=== PATIENT | male | born 2000 | race Caucasian/White ===

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

== ENCOUNTER 2023-08-21 18:01 | Observation (INO) ==
--- NOTE | 2023-08-21 18:34 | ED Triage Note ---
Date of Service August 21, 2023 Provider in Triage Author: Deirdre Kimbrough History of Present Illness This patient was briefly evaluated while in triage. An abbreviated physical exam was performed. This patient is a 23-year-old Male who presents to the ED for evaluation of nausea, vomiting, abdominal pain x3 days. Last emesis was last night. Persistent abdominal pain reports "feels like there's a ball of pain in the center of my stomach." Pain right above belly button. Physical Exam VITALS: Vitals are noted on the nurse's note and reviewed by myself. GENERAL: This is a 23 year old male, in no acute distress, nondiaphoretic, well- developed well-nourished. SKIN: No obvious rashes, edema, erythema HEAD: Normocephalic atraumatic. EYES: Conjunctivae without injection, sclerae without icterus. NECK: No JVD. LUNGS: No retractions or accessory muscle use. MUSCULOSKELETAL: Normal gait. NEURO: Patient was alert and oriented to person place and time. No focal neurological deficits. Initial orders for labs and / or imaging were placed and patient was placed in the waiting area until a bed is available. Please see further documentation for the full ED course.
[2023-08-21] MEDS: ALUMINUM/MAGNESIUM SUSP 30 ML UDC PO STA (19:06)
[2023-08-21] MEDS: ONDANSETRON INJ 2 MG/ML 2 ML VIAL IV STA (19:06)
[2023-08-21] MEDS: KETOROLAC TROMETHAMINE 15 MG/ML VIAL IV STA (19:06)
[2023-08-21] MEDS: SODIUM CHLORIDE 0.9% 1,000 ML IV STA (19:06)
[2023-08-21] MEDS: FAMOTIDINE 20MG IV PUSH 20 MG/5 ML SYR IV STA (19:06)
[2023-08-21 19:37] LABS: Albumin Globulin Ratio 1.8 (0.9-2); Albumin Level 5.6 gm/dl (3.4-5.0); BUN Creatinine Ratio 21.8 (10-20); Bilirubin,Total 1.7 mg/dl (0.2-1.0); Calcium 10.5 mg/dl (8.6-10.3); Creatinine Clr Calc Pharmacy 110.7 ml/min; Est GFR (Non-African American) 120.8 ml/min; Globulin 3.1 gm/dl (2.5-4.0); Potassium 3.4 mmol/L (3.5-5.1); Total Protein 8.7 gm/dl (6.0-8.3)
[2023-08-21 19:44] LABS: Basophils # (auto) 0.01 K/uL (0.00-0.20); Basophils % (auto) 0.1 %; Hematocrit (blood only) 46.8 % (42.0-52.0); Hemoglobin 16.8 g/dl (14.0-18.0); Immature Granulocytes # (auto) 0.04 K/uL (0.01-0.20); Immature Granulocytes % (auto) 0.3 %; Lymphocytes # (auto) 1.81 K/uL (1.20-3.40); Lymphocytes % (auto) 14.8 %; Mean Corpuscular Hemoglobin 30.1 pg (25.0-34.0); Mean Corpuscular Hgb Conc 35.9 g/dL (32.0-36.0); Mean Corpuscular Volume 83.7 fL (80.0-100.0); Mean Platelet Volume 9.2 fL (9.4-12.4); Monocytes % (auto) 9.8 %; Neutrophils # (auto) 9.17 K/uL (1.40-6.50); Platelet Count 397 K/uL (130-400); RDW Standard Deviation 36.4 fL (36.4-46.3); Red Blood Count 5.59 M/uL (4.70-6.10); White Blood Count 12.23 K/ul (4.8-10.8)
--- NOTE | 2023-08-21 21:44 | Emergency Department Note ---
History of Present Illness General Chief complaint: Abdominal Pain Stated complaint: ABD PAIN, NAUSEA, VOMITED THIS MORNING Time Seen by Provider: 08/21/23 21:31 History of Present Illness Maximum Pain Intensity: 3 This is a 23-year-old male presenting to the emergency department for evaluation of upper abdominal pain that began 3 days ago. The patient states this was with associated nausea and vomiting. He has not had fevers or chills. He is not able to eat or drink due to his symptoms. Patient rates his discomfort a 3/10. He does not have any lower symptoms. No recent travel history. No history of abdominal surgery. Home Medications Medication Instructions Recorded Confirmed Type No Known Home Medications 08/21/23 08/21/23 History Allergies Allergy/AdvReac Type Severity Reaction Status Date / Time No Known Allergies Allergy Verified 08/21/23 22:09 Past Med/Surg History Medical History No chronic diseases present Surgical History No significant past surgical history Social History Smoking Status: Never smoker Tobacco Type: Cigarettes Do You Dip or Chew Tobacco: No; Hx Alcohol Use: Yes Alcohol type: beer and hard liquor Hx Substance Use: Yes Last Used Substance: Days (ago) Substance Use Type Other:: medical card Preferred Language: Guatemalan Communication Ability: Effective Volunteer Recruiter Required: No Beliefs That Will Affect Care: None Current Living Situation: Parent Feels Safe at Home: Yes Safety Concerns: Feels Safe At This Time Assistive Devices: Contacts and Glasses Review of Systems A total of 10 systems reviewed and were otherwise negative Physical Exam Vital Signs Vital Signs - 24 hr 08/21/23 18:33 08/21/23 21:26 08/21/23 21:30 Temperature 36.7 C Temperature Source Temporal Artery Scan Pulse Rate 57 L 57 L Pulse Rate [Apical] 67 Respiratory Rate 20 12 Respiratory Effort / Characteristics Non-Labored Spontaneous Respiratory Depth Normal Blood Pressure 125/81 Blood Pressure [Left Arm] 147/92 H Blood Pressure Mean 95 Blood Pressure Mean [Left Arm] 110 Pulse Oximetry 98 98 Oxygen Delivery Method Room Air Sepsis Recent Fever Within 48 Hours No Sepsis New/Unexplained Change in Mental Status N/A Sepsis Action Taken by Nursing No Action Required 08/21/23 21:50 08/21/23 23:56 08/21/23 23:57 Temperature Temperature Source Pulse Rate 62 60 Pulse Rate [Apical] Respiratory Rate 18 16 Respiratory Effort / Characteristics Respiratory Depth Blood Pressure 147/92 H 132/81 Blood Pressure [Left Arm] Blood Pressure Mean 110 103 Blood Pressure Mean [Left Arm] Pulse Oximetry 98 97 98 Oxygen Delivery Method Room Air Sepsis Recent Fever Within 48 Hours Sepsis New/Unexplained Change in Mental Status Sepsis Action Taken by Nursing VITALS: Vitals are noted on the nurse's note and reviewed by myself. Vital signs stable. GENERAL: Well-developed, well-nourished, white male, who is in no acute distress and resting comfortably. Patient is cooperative with the examination. HEAD: Normocephalic atraumatic. EARS: External ear normal. External auditory canals clear, tympanic membranes pearly mcadams without erythema or effusion bilaterally. EYES: Pupils equal round and reactive to light and accommodation. Conjunctivae without injection, sclerae without icterus. Extraocular movements intact. NOSE: Patent, turbinates without inflammation or discharge. MOUTH: Mucous membranes moist. Tonsils are not enlarged. Pharynx without erythema, blood, or exudate. Uvula midline. Airway patent. NECK: Supple without nuchal rigidity. No lymphadenopathy. No thyromegaly. Cervical spine is nontender. HEART: Regular rate and rhythm without murmurs gallops or rubs. LUNGS: Clear to auscultation bilaterally without wheezes, rales or rhonchi. No retractions or accessory muscle use. ABDOMEN: Positive normal bowel sounds x 4. Soft, with epigastric tenderness on palpation. No rebound or guarding. No lower tenderness. No CVA tenderness. Course Administered Medications Acetaminophen (Acetaminophen 325 Mg Tab) 650 mg PO QID PRN PRN Reason: pain/fever Stop: 09/21/23 00:04 Last Admin: 08/22/23 08:01 Dose: 650 mg Documented By: CEF Enoxaparin Sodium (Enoxaparin Inj 30 Mg/0.3 Ml Syr) 30 mg SQ QAM [facility] Stop: 09/21/23 08:59 Last Admin: 08/22/23 08:25 Dose: 30 mg Documented By: CEF Promethazine HCl 6.25 mg/ (Sodium Chloride) 50.25 mls @ 201 mls/hr IV Q6H PRN PRN Reason: Nausea And Vomiting Stop: 09/21/23 00:36 Last Infusion: 08/22/23 08:23 Dose: Infused Documented By: Admin: 08/22/23 08:00 Dose: 201 mls/hr Documented By: CEF Lactated Ringer's (Lr) 1,000 mls @ 80 mls/hr IV .[id number] KEVIN Stop: 08/23/23 12:59 Last Admin: 08/22/23 12:12 Dose: 80 mls/hr Documented By: CEF Discontinued Medications Al Hydrox/Mg Hydrox/Simethicone (Aluminum/Magnesium Susp 30 Ml Udc) 30 ml PO NOW STA Stop: 08/21/23 18:35 Last Admin: 08/21/23 19:06 Dose: 30 ml Documented By: PIERRE Sodium Chloride (Nss) 1,000 mls @ 999 mls/hr IV .Q1H1M STA Stop: 08/21/23 19:34 Last Infusion: 08/21/23 21:27 Dose: Infused Documented By: Admin: 08/21/23 19:06 Dose: 999 mls/hr Documented By: PIERRE Famotidine (Pepcid 20mg Iv Push) 20 mg in 5 mls @ 2.5 mls/min IV NOW STA Stop: 08/21/23 18:35 Last Admin: 08/21/23 19:06 Dose: 2.5 mls/min Documented By: PIERRE Sodium Chloride (Nss) 1,000 mls @ 999 mls/hr IV .Q1H1M KEVIN Stop: 08/21/23 22:45 Last Infusion: 08/21/23 23:49 Dose: Infused Documented By: Admin: 08/21/23 22:13 Dose: 999 mls/hr Documented By: MARCELO Potassium Chloride 20 meq/ (Lactated Ringer's) 1,010 mls @ 80 mls/hr IV .[id number] ONE Stop: 08/22/23 13:07 Last Infusion: 08/22/23 11:09 Dose: Infused Documented By: Admin: 08/22/23 00:47 Dose: 100 mls/hr Documented By: LAF Ioversol (Optiray 320 100ml) 89 ml IV ONCE ONE Stop: 08/21/23 21:56 Last Admin: 08/21/23 21:55 Dose: 89 ml Documented By: HANSA Ioversol (Optiray 320 100ml) 94 ml IV ONCE ONE Stop: 08/22/23 09:53 Last Admin: 08/22/23 09:52 Dose: 94 ml Documented By: GERMAIN Ketorolac Tromethamine (Ketorolac Tromethamine 15 Mg/Ml Vial) 10 mg IV NOW STA Stop: 08/21/23 18:35 Last Admin: 08/21/23 19:06 Dose: 10 mg Documented By: PIERRE Ondansetron HCl (Ondansetron Inj 2 Mg/Ml 2 Ml Vial) 4 mg IV NOW STA Stop: 08/21/23 18:35 Last Admin: 08/21/23 19:06 Dose: 4 mg Documented By: PIERRE Potassium Chloride (Potassium Chloride Crtab 20 Meq Tabcr) 20 meq PO NOW STA Stop: 08/22/23 00:03 Last Admin: 08/22/23 00:55 Dose: 20 meq Documented By: VICENTE Medical Decision Making Differential Diagnosis Differential diagnosis: Etiologies such as biliary colic, cholecystitis, hepatitis, pancreatitis, cardiac disease, pancreatitis, gastritis, peptic ulcer disease, appendicitis, cystitis, diverticulitis, mesenteric ischemia, inflammatory bowel disease, ileus, bowel obstruction, testicular/adnexal torsion, aortic pathology, shingles, as well as others were considered Laboratory Data 08/22/23 06:43 08/22/23 06:43 Lab Results 08/21/23 08/21/23 Range/Units 19:05 23:56 WBC 12.23 H (4.8-10.8) K/ul RBC 5.59 (4.70-6.10) M/uL Hgb 16.8 (14.0-18.0) g/dl Hct 46.8 (42.0-52.0) % MCV 83.7 (80.0-100.0) fL MCH 30.1 (25.0-34.0) pg MCHC 35.9 (32.0-36.0) g/dL RDW Std Deviation 36.4 (36.4-46.3) fL RDW Coeff of Vipul 12.0 (11.5-14.5) % Plt Count 397 (130-400) K/uL MPV 9.2 L (9.4-12.4) fL Immature Gran % (Auto) 0.3 % Neut % (Auto) 75.0 % Lymph % (Auto) 14.8 % [place] % (Auto) 9.8 % Eos % (Auto) 0.0 % Baso % (Auto) 0.1 % Neut # (Auto) 9.17 H (1.40-6.50) K/uL Lymph # (Auto) 1.81 (1.20-3.40) K/uL [place] # (Auto) 1.20 H (0.11-0.59) K/uL Eos # (Auto) 0.00 (0.00-0.50) K/uL Baso # (Auto) 0.01 (0.00-0.20) K/uL Immature Gran # (Auto) 0.04 (0.01-0.20) K/uL Sodium 137 (136-145) mmol/L Potassium 3.4 L (3.5-5.1) mmol/L Chloride 96 L (98-107) mmol/L Carbon Dioxide 31 (21-32) mmol/L Anion Gap 10 (3-11) BUN 19 (6-23) mg/dl Creatinine 0.87 (0.6-1.4) mg/dl Est Cr Clr Drug Dosing 110.7 ml/min Est GFR ( Amer) 140.0 ml/min Est GFR (Non-Af Amer) 120.8 ml/min BUN/Creatinine Ratio 21.8 H (10-20) Glucose 103 H (70-99(Fasting)) mg/dl Calcium 10.5 H (8.6-10.3) mg/dl Phosphorus 3.3 (2.5-4.9) mg/dl Magnesium 2.1 (1.7-2.4) mg/dl Total Bilirubin 1.7 H (0.2-1.0) mg/dl AST 17 (13-39) U/L ALT 16 (7-52) U/L Alkaline Phosphatase 39 (34-104) U/L Total Protein 8.7 H (6.0-8.3) gm/dl Albumin 5.6 H (3.4-5.0) gm/dl Globulin 3.1 (2.5-4.0) gm/dl Albumin/Globulin Ratio 1.8 (0.9-2) Amylase 154 H (25-115) U/L Lipase 363 H (11-82) U/L Urine Color Yellow Urine Appearance Clear (Clear) Urine pH 7.5 (4.5-7.5) Ur Specific [place] > 1.045 H (1.000-1.030) Urine Protein Trace H (Negative) Urine Glucose (UA) Negative (Negative) Urine Ketones 1+ H (Negative) Urine Blood Negative (Negative) Urine Nitrite Negative (Negative) Urine Bilirubin Negative (Negative) Urine Urobilinogen Negative (Negative) Ur Leukocyte Esterase Negative (Negative) Urine WBC (Auto) 0-5 (0-5) /hpf Urine RBC (Auto) 0-2 (0-2) /hpf U Hyaline Cast (Auto) 0-2 (0-2) /lpf U Epithel Cells (Auto) 0-2 (0-2) /hpf Urine Bacteria (Auto) None Seen (None Seen) Urine Opiates Screen Neg (Neg) Ur Methadone, Qual Neg (Neg) Urine Barbiturates Neg (Neg) Ur Phencyclidine (PCP) Neg (Neg) U Amphetamin/Meth Scrn Neg (Neg) MDMA (Ecstasy) Screen Neg (Neg) U Benzodiazepines Scrn Neg (Neg) Ur Cocaine Metabolite Neg (Neg) U Marijuana (THC) Screen Pos H (Neg) Imaging Data Radiologist's Impression: Gallbladder Ultrasound 08/22/23 00:35 Exam(s): US GALLBLADDER EXAM: US Abdomen Limited, Gallbladder CLINICAL HISTORY: Abdominal Pain. TECHNIQUE: Real-time ultrasound of the right upper quadrant with image documentation. COMPARISON: Gallbladder ultrasound 08/15/2022 FINDINGS: Liver: Indeterminate echogenic lesions in the left lower the liver measure up to 2.7 cm. Fatty infiltration of the liver. Gallbladder: Unremarkable. No gallstones. Common bile duct: Common bile duct is normal measuring 0.3 cm. No stones. No dilation. Pancreas: The pancreatic head and body are within normal limits. The tail is not visualized due to overlying bowel gas. Right kidney: The right kidney is unremarkable measuring 9.6 cm. IMPRESSION: 1. Indeterminate echogenic lesions in the left lower the liver measure up to 2.7 cm. Recommend further evaluation with dedicated hepatic protocol CT or MRI. 2. Fatty infiltration of the liver. Electronically signed by: Kaya Harvey MD 08/22/23 03:12 AM [facility] Narrative Physical exam and history were performed. Nursing notes, EMR, and Medication List were personally reviewed. No social concerns were identified as barriers to patients care. Patient appears to have upper abdominal pain bringing him to the ER. Patient was seen during a period of very high ER volume and acuity with extended wait times. Nursing protocol order have been performed and some of these are available for my review at the time of patient encounter. Patient's blood work is as above and was reviewed. He does not have a significantly elevated white blood cell count, gross anemia, bandemia, or significant electrolyte imbalance. Amylase and lipase are elevated which may suggest acute pancreatitis. Transaminases are not diagnostic. Because of the elevated enzymes the patient was sent to CT for imaging of his abdomen and pelvis. CT scan was reviewed by myself and radiology showing no acute process. Overall the patient does not appear well for discharge. Escalation of care is necessary. The patient was discussed with the on-call hospitalist team, who did agree to evaluate the patient here in the ER. Please see the hospitalist dictation for further patient course, plan, and disposition. The chart was completed utilizing [employer] Speech Voice Recognition Software. Grammatical errors, random word insertions, pronoun errors, and incomplete sentences are an occasional consequence of this system due to software limitations, ambient noise, and hardware issues. Any formal questions or concerns about the content, text, or information contained within the body of this dictation should be directly addressed to the provider for clarification. . Impression & Plan Acute pancreatitis, Acute upper abdominal pain Discharge Plan Visit Data Chief Complaint: Abdominal Pain Stated Complaint: ABD PAIN, NAUSEA, VOMITED THIS MORNING ED Provider: Nitesh Christy ED Midlevel Provider: Fabien Gomez Discharge Problem: Acute pancreatitis, Acute upper abdominal pain Patient Disposition: Admitted As Inpatient Discharge Instructions Interventions: ED Discharge Assessment Last Done: 08/22/23 01:09
[2023-08-21] MEDS: OPTIRAY 320 100ml IV ONE (21:55)
[2023-08-21] MEDS: SODIUM CHLORIDE 0.9% 1,000 ML IV SCH (22:13)
--- NOTE | 2023-08-21 22:29 | CT Scan Report ---
Exam(s): CT ABDOMEN + PELVIS With Contrast IV Amt: 89 CC OPTI 320 EXAM: CT Abdomen and Pelvis With Intravenous Contrast CLINICAL HISTORY: Reason for exam: upper abd pain, elevated lipase. TECHNIQUE: Axial computed tomography images of the abdomen and pelvis with intravenous contrast. CTDI is 9.91 mGy and DLP is 478.41 mGy-cm. Automated exposure control was utilized for the study. A dose lowering technique was utilized adhering to the principles of ALARA. CONTRAST: Patient received 89 CC OPTI 320 of IV contrast COMPARISON: No relevant prior studies available. FINDINGS: Lung bases: Unremarkable. No mass. No consolidation. ABDOMEN: Liver: Unremarkable. No mass. Gallbladder and bile ducts: Unremarkable. No calcified stones. No ductal dilation. Pancreas: Unremarkable. No mass. No ductal dilation. Spleen: Unremarkable. No splenomegaly. Adrenals: Unremarkable. No mass. Kidneys and ureters: Unremarkable. No solid mass. No hydronephrosis. Stomach and bowel: There is sigmoid colonic diverticulosis. No obstruction. No mucosal thickening. PELVIS: Appendix: No findings to suggest acute appendicitis. Bladder: Unremarkable. No mass. Reproductive: Unremarkable as visualized. ABDOMEN and PELVIS: Intraperitoneal space: Unremarkable. No free air. No significant fluid collection. Bones/joints: No acute fracture. No dislocation. Soft tissues: Unremarkable. Vasculature: Unremarkable. No abdominal aortic aneurysm. Lymph nodes: Unremarkable. No enlarged lymph nodes. IMPRESSION: No evidence of pancreatitis Is Electronically signed by: Tushar Rodriguez MD 08/21/23 22:28 PM
[2023-08-22] MEDS ORDERED: oxyCODONE HCL IR 5 MG TAB (IMMEDIATE RELEASE) PO PRN (00:05)
[2023-08-22 00:07] LABS: Appearance Urine Clear (Clear); Bacteria Urine Automated None Seen (None Seen); Bilirubin Urine Negative (Negative); Blood Urine Negative (Negative); Cast Urine Automated 0-2 /lpf (0-2); Color Urine Yellow; Epithelial Cell Urine Auto 0-2 /hpf (0-2); Glucose Urine UA Negative (Negative); Ketones Urine 1+ (Negative); Leukocyte Esterase Urine Negative (Negative); Nitrite Urine Negative (Negative); Protein Urine Trace (Negative); RBC Urine Automated 0-2 /hpf (0-2); Specific Gravity Urine > 1.045 (1.000-1.030); Urobilinogen Urine Negative (Negative); WBC Urine Automated 0-5 /hpf (0-5); pH Urine 7.5 (4.5-7.5)
--- NOTE | 2023-08-22 00:35 | History & Physical Report ---
Date of Service August 22, 2023 Assessment & Plan (1) Acute pancreatitis: Plan: Possibly from cannabis use Rule out biliary etiology Hypercalcemia secondary to clinical dehydration secondary to GI illness Abnormal serum calcium noted on previous ER visits ADHD, stable off maintenance medications GMF Bowel rest, IVF, analgesia Gallbladder ultrasound GI consult re: pancreatitis Patient educated about association between pancreatitis and cannabis use. Hypercalcemia workup DVT prophylaxis. Lovenox subcu Full code Patient mother requesting updates providers. Ms. Radha Caballero, contact #[phone]. Text document was generated using [employer] voice recognition software. It may contain grammatical or spelling errors. Kindly contact undersigned for clarification of any documentation item in question. History of Present Illness Chief Complaint: Abdominal pain Primary Care Provider: NO PCP History obtained from patient, family, and records. Medical history significant for ADHD, marijuana use. 3 days history of achy upper abdominal pain associated with nausea and bilious emesis. Somewhat worsened by food intake. No fever, no chills, no chest pain, no SOB. No unusual weight loss. No recent EtOH intake. Past episodes leading to ER visits but not this bad. Patient seen March 2022 at [facility] [place] [facility] office for evaluation of GI symptoms. Incomplete response to trial of low-dose antacids as per patient. Outpatient ultrasound negative for gallstones. Outpatient celiac antibody testing recommended. Medical History as above Surgical History : None Family History : Gallstone disease, breast cancer, celiac disease, lung cancer Personal/Social history : Non-smoker, occasional EtOH intake, landscape work Allergies Allergy/AdvReac Type Severity Reaction Status Date / Time No Known Allergies Allergy Verified 08/21/23 22:09 Home Medications Medication Instructions Recorded Confirmed Type No Known Home Medications 08/21/23 08/21/23 History Past Med/Surg History Medical History No chronic diseases present Surgical History No significant past surgical history Social History Smoking Status: Never smoker Tobacco Type: Cigarettes Do You Dip or Chew Tobacco: No; Hx Alcohol Use: Yes Alcohol type: beer and hard liquor Hx Substance Use: Yes Last Used Substance: Days (ago) Substance Use Type Other:: medical card Preferred Language: Icelandic Communication Ability: Effective Pull Tab Dealer Required: No Beliefs That Will Affect Care: None Current Living Situation: Parent Feels Safe at Home: Yes Safety Concerns: Feels Safe At This Time Assistive Devices: Contacts and Glasses Review of Systems Review of Systems: As per HPI, all other systems reviewed and negative Physical Exam Physical Exam: GENERAL: Slightly uncomfortable, pleasant, no respiratory distress SKIN: Normal color, warm HEENT: [place] palpebral conjunctivae, no ptosis, dry buccal mucosa NECK : Supple, no tenderness CHEST : CTA, no tenderness HEART : Bradycardic, no obvious murmurs ABDOMEN: Some distention, epigastric tenderness EXTREMITIES : No LE swelling/tenderness, no other conspicuous deformities noted NEUROLOGIC : Coherent, no facial asymmetry, no other gross focality Results & Data Results & Data Vital Signs (Past 12 Hours) Vital Signs Temp Pulse Pulse Resp BP BP Pulse Ox 08/21/23 23:57 98 08/21/23 23:56 60 16 132/81 97 08/21/23 21:50 62 18 147/92 H 98 08/21/23 21:30 67 12 147/92 H 98 08/21/23 21:26 57 L 08/21/23 18:33 36.7 C 57 L 20 125/81 98 O2 Del Method 08/21/23 23:57 Room Air 08/21/23 23:56 08/21/23 21:50 08/21/23 21:30 08/21/23 21:26 08/21/23 18:33 Room Air Laboratory Results Laboratory Results WBC 12.23 K/ul (4.8-10.8) H 08/21/23 19:05 RBC 5.59 M/uL (4.70-6.10) 08/21/23 19:05 Hgb 16.8 g/dl (14.0-18.0) 08/21/23 19:05 Hct 46.8 % (42.0-52.0) 08/21/23 19:05 MCV 83.7 fL (80.0-100.0) 08/21/23 19:05 MCH 30.1 pg (25.0-34.0) 08/21/23 19:05 MCHC 35.9 g/dL (32.0-36.0) 08/21/23 19:05 RDW Std Deviation 36.4 fL (36.4-46.3) 08/21/23 19:05 RDW Coeff of Vipul 12.0 % (11.5-14.5) 08/21/23 19:05 Plt Count 397 K/uL (130-400) 08/21/23 19:05 MPV 9.2 fL (9.4-12.4) L 08/21/23 19:05 Immature Gran % (Auto) 0.3 % 08/21/23 19:05 Neut % (Auto) 75.0 % 08/21/23 19:05 Lymph % (Auto) 14.8 % 08/21/23 19:05 [place] % (Auto) 9.8 % 08/21/23 19:05 Eos % (Auto) 0.0 % 08/21/23 19:05 Baso % (Auto) 0.1 % 08/21/23 19:05 Neut # (Auto) 9.17 K/uL (1.40-6.50) H 08/21/23 19:05 Lymph # (Auto) 1.81 K/uL (1.20-3.40) 08/21/23 19:05 [place] # (Auto) 1.20 K/uL (0.11-0.59) H 08/21/23 19:05 Eos # (Auto) 0.00 K/uL (0.00-0.50) 08/21/23 19:05 Baso # (Auto) 0.01 K/uL (0.00-0.20) 08/21/23 19:05 Immature Gran # (Auto) 0.04 K/uL (0.01-0.20) 08/21/23 19:05 Sodium 137 mmol/L (136-145) 08/21/23 19:05 Potassium 3.4 mmol/L (3.5-5.1) L 08/21/23 19:05 Chloride 96 mmol/L (98-107) L 08/21/23 19:05 Carbon Dioxide 31 mmol/L (21-32) 08/21/23 19:05 Anion Gap 10 (3-11) 08/21/23 19:05 BUN 19 mg/dl (6-23) 08/21/23 19:05 Creatinine 0.87 mg/dl (0.6-1.4) 08/21/23 19:05 Est Cr Clr Drug Dosing 110.7 ml/min 08/21/23 19:05 Est GFR ( Amer) 140.0 ml/min 08/21/23 19:05 Est GFR (Non-Af Amer) 120.8 ml/min 08/21/23 19:05 BUN/Creatinine Ratio 21.8 (10-20) H 08/21/23 19:05 Glucose 103 mg/dl (70-99(Fasting)) H 08/21/23 19:05 Calcium 10.5 mg/dl (8.6-10.3) H 08/21/23 19:05 Total Bilirubin 1.7 mg/dl (0.2-1.0) H 08/21/23 19:05 AST 17 U/L (13-39) 08/21/23 19:05 ALT 16 U/L (7-52) 08/21/23 19:05 Alkaline Phosphatase 39 U/L (34-104) 08/21/23 19:05 Total Protein 8.7 gm/dl (6.0-8.3) H 08/21/23 19:05 Albumin 5.6 gm/dl (3.4-5.0) H 08/21/23 19:05 Globulin 3.1 gm/dl (2.5-4.0) 08/21/23 19:05 Albumin/Globulin Ratio 1.8 (0.9-2) 08/21/23 19:05 Amylase 154 U/L (25-115) H 08/21/23 19:05 Lipase 363 U/L (11-82) H 08/21/23 19:05 Urine Color Yellow 08/21/23 23:56 Urine Appearance Clear (Clear) 08/21/23 23:56 Urine pH 7.5 (4.5-7.5) 08/21/23 23:56 Ur Specific [place] > 1.045 (1.000-1.030) H 08/21/23 23:56 Urine Protein Trace (Negative) H 08/21/23 23:56 Urine Glucose (UA) Negative (Negative) 08/21/23 23:56 Urine Ketones 1+ (Negative) H 08/21/23 23:56 Urine Blood Negative (Negative) 08/21/23 23:56 Urine Nitrite Negative (Negative) 08/21/23 23:56 Urine Bilirubin Negative (Negative) 08/21/23 23:56 Urine Urobilinogen Negative (Negative) 08/21/23 23:56 Ur Leukocyte Esterase Negative (Negative) 08/21/23 23:56 Urine WBC (Auto) 0-5 /hpf (0-5) 08/21/23 23:56 Urine RBC (Auto) 0-2 /hpf (0-2) 08/21/23 23:56 U Hyaline Cast (Auto) 0-2 /lpf (0-2) 08/21/23 23:56 U Epithel Cells (Auto) 0-2 /hpf (0-2) 08/21/23 23:56 Urine Bacteria (Auto) None Seen (None Seen) 08/21/23 23:56 Impressions Abdomen/Pelvis CT 08/21/23 21:37 Exam(s): CT ABDOMEN + PELVIS With Contrast IV Amt: 89 CC OPTI 320 EXAM: CT Abdomen and Pelvis With Intravenous Contrast CLINICAL HISTORY: Reason for exam: upper abd pain, elevated lipase. TECHNIQUE: Axial computed tomography images of the abdomen and pelvis with intravenous contrast. CTDI is 9.91 mGy and DLP is 478.41 mGy-cm. Automated exposure control was utilized for the study. A dose lowering technique was utilized adhering to the principles of ALARA. CONTRAST: Patient received 89 CC OPTI 320 of IV contrast COMPARISON: No relevant prior studies available. FINDINGS: Lung bases: Unremarkable. No mass. No consolidation. ABDOMEN: Liver: Unremarkable. No mass. Gallbladder and bile ducts: Unremarkable. No calcified stones. No ductal dilation. Pancreas: Unremarkable. No mass. No ductal dilation. Spleen: Unremarkable. No splenomegaly. Adrenals: Unremarkable. No mass. Kidneys and ureters: Unremarkable. No solid mass. No hydronephrosis. Stomach and bowel: There is sigmoid colonic diverticulosis. No obstruction. No mucosal thickening. PELVIS: Appendix: No findings to suggest acute appendicitis. Bladder: Unremarkable. No mass. Reproductive: Unremarkable as visualized. ABDOMEN and PELVIS: Intraperitoneal space: Unremarkable. No free air. No significant fluid collection. Bones/joints: No acute fracture. No dislocation. Soft tissues: Unremarkable. Vasculature: Unremarkable. No abdominal aortic aneurysm. Lymph nodes: Unremarkable. No enlarged lymph nodes. IMPRESSION: No evidence of pancreatitis Is Electronically signed by: Tushar Rodriguez MD 08/21/23 22:28 PM
[2023-08-22] MEDS ORDERED: LORazepam 0.5 MG TAB PO PRN (00:37)
[2023-08-22 00:40] LABS: Magnesium 2.1 mg/dl (1.7-2.4); Phosphorus 3.3 mg/dl (2.5-4.9)
[2023-08-22] MEDS: POTASSIUM CHLORIDE 20 MEQ in LACTATED RINGER'S 1,000 ML IV ONE (00:47)
[2023-08-22] MEDS: POTASSIUM CHLORIDE CRTAB 20 MEQ TABCR PO STA (00:55)
[2023-08-22 01:35] LABS: Amphetamines+Metham, Urine Neg (Neg); Barbiturates, Urine Neg (Neg); Benzodiazepine, Urine Neg (Neg); Cocaine, Urine Neg (Neg); MDMA (Ecstacy), Urine Neg (Neg); Marijuana, Urine Pos (Neg); Methadone, Urine Neg (Neg); Opiate, Urine Neg (Neg); Phencyclidine, Urine Neg (Neg)
--- NOTE | 2023-08-22 03:13 | Ultrasound Report ---
Exam(s): US GALLBLADDER EXAM: US Abdomen Limited, Gallbladder CLINICAL HISTORY: Abdominal Pain. TECHNIQUE: Real-time ultrasound of the right upper quadrant with image documentation. COMPARISON: Gallbladder ultrasound 08/15/2022 FINDINGS: Liver: Indeterminate echogenic lesions in the left lower the liver measure up to 2.7 cm. Fatty infiltration of the liver. Gallbladder: Unremarkable. No gallstones. Common bile duct: Common bile duct is normal measuring 0.3 cm. No stones. No dilation. Pancreas: The pancreatic head and body are within normal limits. The tail is not visualized due to overlying bowel gas. Right kidney: The right kidney is unremarkable measuring 9.6 cm. IMPRESSION: 1. Indeterminate echogenic lesions in the left lower the liver measure up to 2.7 cm. Recommend further evaluation with dedicated hepatic protocol CT or MRI. 2. Fatty infiltration of the liver. Electronically signed by: Kaya Harvey MD 08/22/23 03:12 AM
[2023-08-22 07:33] LABS: Basophils # (auto) 0.01 K/uL (0.00-0.20); Basophils % (auto) 0.1 %; Hematocrit (blood only) 37.8 % (42.0-52.0); Hemoglobin 13.7 g/dl (14.0-18.0); Immature Granulocytes # (auto) 0.04 K/uL (0.01-0.20); Immature Granulocytes % (auto) 0.4 %; Lymphocytes # (auto) 2.11 K/uL (1.20-3.40); Lymphocytes % (auto) 19.7 %; Mean Corpuscular Hgb Conc 36.2 g/dL (32.0-36.0); Mean Corpuscular Volume 82.7 fL (80.0-100.0); Mean Platelet Volume 9.1 fL (9.4-12.4); Monocytes # (auto) 0.85 K/uL (0.11-0.59); Monocytes % (auto) 7.9 %; Neutrophils # (auto) 7.71 K/uL (1.40-6.50); Neutrophils % (auto) 71.9 %; Platelet Count 292 K/uL (130-400); RDW Coefficient of Variation 11.9 % (11.5-14.5); RDW Standard Deviation 35.9 fL (36.4-46.3); Red Blood Count 4.57 M/uL (4.70-6.10); White Blood Count 10.72 K/ul (4.8-10.8)
[2023-08-22 07:38] LABS: Albumin Globulin Ratio 1.9 (0.9-2); BUN Creatinine Ratio 19.8 (10-20); Bilirubin,Total 1.3 mg/dl (0.2-1.0); Calcium 8.9 mg/dl (8.6-10.3); Creatinine Clr Calc Pharmacy 121.9 ml/min; Est GFR (African American) 144.2 ml/min; Est GFR (Non-African American) 124.4 ml/min; Globulin 2.1 gm/dl (2.5-4.0); Total Protein 6.1 gm/dl (6.0-8.3)
[2023-08-22] MEDS: PROMETHAZINE HCL 6.25 MG in SODIUM CHLORIDE 0.9% 50 ML IV PRN (08:00)
[2023-08-22] MEDS: ACETAMINOPHEN 325 MG TAB PO PRN (08:01)
[2023-08-22] MEDS: ENOXAPARIN INJ 30 MG/0.3 ML SYR SQ SCH (08:25)
[2023-08-22] MEDS: OPTIRAY 320 100ml IV ONE (09:52)
--- NOTE | 2023-08-22 10:43 | Gastrointestinal Consultation ---
Date of Consultation August 22, 2023 Assessment & Plan (1) Acute pancreatitis: (2) Acute upper abdominal pain: Continue current therapy and supportive care with IVF, Narcotic analgesics and antiemetics. Will await results from CT liver Advance diet as tolerated Advised him to avoid Marijuana as it has known risks of pancreatitis and other GI disorders. History of Present Illness Reason for Consultation: Pancreatitis Attending Physician: Kayla Pérez MD History of Present Illness 23 yo CM who presented to the ER with 3 day history of abdominal pain, nausea and vomiting. Upon arrival he was noted to have a slightly elevated WBC count, elevated lipase and bilirubin levels. He does admit to daily marijuana use. A RUQ US in the ER showed fatty liver and questionable liver lesions, and a CT liver was recommended. He was subsequently admitted and given IVF and supportive care. At the time I saw the patient he was feeling slightly improved. He noted that his abdominal pain had improved significantly. He also notes no further nasuea/vomiting. He was tolerating a clear liquid tray while I spoke with him. He states that he has never been told he had Pancreatitis previously, has no family history of pancreatitis, and denies excessive alcohol use. He further denies any fevers, chills, hematemesis, melena, hematochezia, jaundice, acholic stools, dark urine or pruritus. He has no further complaints. Allergies Allergy/AdvReac Type Severity Reaction Status Date / Time No Known Allergies Allergy Verified 08/21/23 22:09 Home Medications Medication Instructions Recorded Confirmed Type No Known Home Medications 08/21/23 08/21/23 History Patient History Medical History No chronic diseases present Surgical History No significant past surgical history Social History Smoking Status: Never smoker Tobacco Type: Cigarettes Do You Dip or Chew Tobacco: No; Hx Alcohol Use: Yes Alcohol type: beer and hard liquor Hx Substance Use: Yes Last Used Substance: Days (ago) Substance Use Type Other:: medical card Preferred Language: Korean Communication Ability: Effective Insurance Associate Required: No Beliefs That Will Affect Care: None Current Living Situation: Parent Feels Safe at Home: Yes Safety Concerns: Feels Safe At This Time Assistive Devices: Contacts and Glasses Review of Systems Review of Systems: All systems reviewed & are unremarkable except as noted in Subjective Physical Exam Constitutional: WD/WN, vitals as above ENMT: external ear and nose normal, oropharynx normal Neck: trachea midline, no thyromegaly Respiratory: normal respiratory effort, lungs clear to auscultation Cardiovascular: RRR, no murmur, no edema Gastrointestinal (Abdomen): normal bowel sounds, soft, nontender, no hepatosplenomegaly Skin: no rashes, warm and dry Results & Data Vital Signs (Past 12 Hours) Vital Signs Temp Pulse Pulse Resp BP BP Pulse Ox 08/22/23 07:37 36.4 C L 51 L 16 161/107 H 100 08/22/23 02:30 36.6 C 51 L 16 167/83 H 99 08/21/23 23:57 98 08/21/23 23:56 60 16 132/81 97 O2 Del Method 08/22/23 07:37 Room Air 08/22/23 02:30 Room Air 08/21/23 23:57 Room Air 08/21/23 23:56 PG Care Time/CCT Total # of Minutes Spent Total Time Spent with Patient: Total time spent is greater than 50% in coordination of care (as documented) at patient's floor/unit and/or counseling patient: Coding Level of Care Code 88078 IN/OBS CONSULT LVL 4,60M Diagnoses Acute pancreatitis K85.90 Acute upper abdominal pain R10.10
[2023-08-22] MEDS ORDERED: LACTATED RINGER'S 1,000 ML IV SCH (11:00)
[2023-08-22] MEDS: LACTATED RINGER'S 1,000 ML IV SCH (12:12)
--- NOTE | 2023-08-22 15:09 | Hospitalist Progress Note ---
Date of Service August 22, 2023 Assessment & Plan (1) Acute pancreatitis: Plan: 23-year-old male with PMH of ADHD, marijuana use presented with complaint of 3- day history of achy upper abdominal pain associated with nausea and bilious emesis, worsened with food intake, denied fever or chills or chest pain or shortness of breath or unusual weight loss. He is being managed for the following: Acute pancreatitis: Amylase and lipase elevated at presentation Likely from cannabis use; AST/ALT/ALP WNL, bilirubin minimally elevated. USG gallbladder with normal GB and CBD. Continue with IV fluid, patient tolerating clear liquid diet, advance to full liquid for the evening. Plan to advance to soft diet in the morning if with no abdominal pain. Labs in AM. Nausea control, pain management. Lesions in left lower liver: 2.7 cm indeterminate echogenic lesion noted in the left lower liver in US gallbladder. CT liver recommended, awaiting results. GI on board, await further recs Vitamin D deficiency: Vitamin D level at 28.3, supplementation started. Repeat level in 3 months. Hypercalcemia: Secondary to clinical dehydration secondary to GI illness, im proved. ADHD, stable off maintenance medications DVT prophylaxis. Lovenox subcu Full code Patient mother Ms. Radha Caballero, contact #[phone]. Text document was generated using [employer] voice recognition software. It may contain grammatical or spelling errors. Kindly contact undersigned for clarification of any documentation item in question. Admission and Anticipated Discharge Date Admission Date: August 22, 2023 Subjective Patient was seen and examined at bedside. Patient was lying in bed, on room air, NAD, resting comfortably. Patient reports improvement in his abdominal pain, denies further pain with clear liquid diet. Patient denies any febrile illness or sore throat or cough or chest pain. Physical Exam Physical Exam: GENERAL: NAD, on RA, pleasant, no respiratory distress SKIN: Normal color, warm HEENT: Leeper palpebral conjunctivae, no ptosis, dry buccal mucosa NECK : Supple, no tenderness CHEST : CTA, no tenderness HEART : Bradycardic, no obvious murmurs ABDOMEN: no distention, no epigastric tenderness EXTREMITIES : No LE swelling/tenderness, no other conspicuous deformities noted NEUROLOGIC : Coherent, no facial asymmetry, no other gross focality Results & Data Results & Data Vital Signs (Past 12 Hours) Vital Signs Temp Pulse Resp BP Pulse Ox O2 Del Method 08/22/23 07:37 36.4 C L 51 L 16 161/107 H 100 Room Air
[2023-08-22] MEDS: CHOLECALCIFEROL 125 MCG (5,000 UNITS) TAB PO SCH (16:08)
--- NOTE | 2023-08-22 19:57 | CT Scan Report ---
CT SCAN OF THE ABDOMEN COMBO LIVER PROTOCOL CLINICAL HISTORY: Follow-up liver lesion seen by ultrasound. COMPARISON STUDY: Abdominal CT scan dated 08/21/2023 and 04/08/2021. Abdominal ultrasound dated 024. TECHNIQUE: Before and following the IV administration of 94 cc of Optiray 320, CT scan of the abdome n is performed from the lung bases to the pelvic inlet using the liver protocol. Images are reviewed in the axial, sagittal, and coronal planes. IV contrast was administered without complication. A dose lowering technique was utilized adhering to the principles of ALARA. CT DOSE: 750.74 mGy.cm FINDINGS: Lung bases: The heart is normal in size and without pericardial effusion. The lung bases are clear. Liver: The contrast-enhanced liver is normal in size, contour, and attenuation. There is fatty infilt ration adjacent to the falciform ligament. There is no intrahepatic biliary ductal dilatation. No enh ancing hepatic lesion is identified. 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 The hepatic veins and portal veins are patent, as are the superior mesenteric v ein and the splenic vein. There is mild periportal edema, likely related to hydration status. Gallbladder: Unremarkable. Spleen: Normal in size and attenuation. Pancreas: Unremarkable. Adrenal glands: Unremarkable. Kidneys: The contrast enhanced kidneys are normal in size and without hydronephrosis. There is a 3 mm nonobstructing left renal calculus seen on the unenhanced series. The kidneys enhance symmetrically. Abdominal vasculature: The abdominal aorta is normal in course and caliber. No dissection is seen. Bowel: Imaged portions of the bowel show no evidence of obstruction. Peritoneum: There is no intraperitoneal free air or abdominal ascites. Lymphadenopathy: None. Skeletal structures: No lytic or blastic lesions are seen. IMPRESSION: 1. Normal examination of the liver. 2. No enhancing hepatic lesion is seen. 3. Echogenic foci seen by ultrasound correspond to fatty infiltration along the falciform ligament. 4. No acute infectious or inflammatory findings are seen in the abdomen. ACT 112: Negative or not required by law. Electronically signed by: Geovanny Keith M.D. 08/22/2023 7:54 PM
[2023-08-23 06:16] LABS: Hematocrit (blood only) 39.2 % (42.0-52.0); Hemoglobin 14.6 g/dl (14.0-18.0); Mean Corpuscular Hemoglobin 30.2 pg (25.0-34.0); Mean Corpuscular Hgb Conc 37.2 g/dL (32.0-36.0); Mean Platelet Volume 9.3 fL (9.4-12.4); Platelet Count 310 K/uL (130-400); RDW Coefficient of Variation 11.7 % (11.5-14.5); Red Blood Count 4.84 M/uL (4.70-6.10); White Blood Count 8.95 K/ul (4.8-10.8)
[2023-08-23 06:40] LABS: BUN Creatinine Ratio 12.5 (10-20); Calcium 9.4 mg/dl (8.6-10.3); Creatinine Clr Calc Pharmacy 123.5 ml/min; Est GFR (African American) 144.9 ml/min; Magnesium 2.1 mg/dl (1.7-2.4); Phosphorus 3.6 mg/dl (2.5-4.9); Potassium 3.6 mmol/L (3.5-5.1)
--- NOTE | 2023-08-23 16:19 | Gastroenterology Progress Note ---
Date of Service August 23, 2023 Assessment & Plan (1) Acute pancreatitis: Plan: Continue current therapy and supportive care Advised him to avoid all alcohol as it is a known pancreatic/liver toxin Advised him to avoid Marijuana as it can cause pancreatitis Followup as an outpatient as needed. Admission and Anticipated Discharge Date Admission Date: August 22, 2023 Subjective Feeling better today. Tolerating PO intake. Denies any fevers, chills, nausea, vomiting, diarrhea, abdominal pain. Review of Systems Review of Systems: All systems reviewed & are unremarkable except as noted in Subjective Physical Exam Constitutional: WD/WN, vitals as above Respiratory: normal respiratory effort, lungs clear to auscultation Cardiovascular: RRR, no murmur, no edema Gastrointestinal (Abdomen): normal bowel sounds, soft, nontender, no hepatosplenomegaly Psychiatric: A+Ox3, euthymic affect Results & Data Results & Data Vital Signs (Past 12 Hours) Vital Signs Temp Pulse Resp BP Pulse Ox O2 Del Method 08/23/23 07:25 36.6 C 49 L 18 145/87 H 98 Room Air PG Care Time/CCT Total # of Minutes Spent Total Time Spent with Patient: Total time spent is greater than 50% in coordination of care (as documented) at patient's floor/unit and/or counseling patient: Coding Level of Care Code 15027 SUB INP/OBS CARE 2/35MIN Diagnoses Acute pancreatitis K85.90
--- NOTE | 2023-08-23 16:36 | Discharge Summary ---
Date of Service August 23, 2023 Admission HPI Per Admitting Provider History obtained from patient, family, and records. Medical history significant for ADHD, marijuana use. 3 days history of achy upper abdominal pain associated with nausea and bilious emesis. Somewhat worsened by food intake. No fever, no chills, no chest pain, no SOB. No unusual weight loss. No recent EtOH intake. Past episodes leading to ER visits but not this bad. Patient seen March 2022 at [facility] GI office for evaluation of GI symptoms. Incomplete response to trial of low-dose antacids as per patient. Outpatient ultrasound negative for gallstones. Outpatient celiac antibody testing recommended. Medical History as above Surgical History : None Family History : Gallstone disease, breast cancer, celiac disease, lung cancer Personal/Social history : Non-smoker, occasional EtOH intake, landscape work Admission Exam Per Admitting Provider GENERAL: Slightly uncomfortable, pleasant, no respiratory distress SKIN: Normal color, warm HEENT: [place] palpebral conjunctivae, no ptosis, dry buccal mucosa NECK : Supple, no tenderness CHEST : CTA, no tenderness HEART : Bradycardic, no obvious murmurs ABDOMEN: Some distention, epigastric tenderness EXTREMITIES : No LE swelling/tenderness, no other conspicuous deformities noted NEUROLOGIC : Coherent, no facial asymmetry, no other gross focality Principal Diagnosis Acute pancreatitis Discharge Exam GENERAL: NAD, on RA, pleasant, no respiratory distress SKIN: Normal color, warm HEENT: [place] palpebral conjunctivae, no ptosis, dry buccal mucosa NECK : Supple, no tenderness CHEST : CTA, no tenderness HEART : Bradycardic, no obvious murmurs ABDOMEN: no distention, no epigastric tenderness EXTREMITIES : No LE swelling/tenderness, no other conspicuous deformities noted NEUROLOGIC : Coherent, no facial asymmetry, no other gross focality Discharge Data Allergies Allergy/AdvReac Type Severity Reaction Status Date / Time No Known Allergies Allergy Verified 08/21/23 22:09 Consultations 08/21/23 23:33 ED Decision to Admit Stat 08/22/23 02:29 Consult Gastroenterology Routine Ordered Studies 08/21/23 21:37 CT abd pelvis IV con only Stat 08/22/23 00:35 US gallbladder Stat 08/22/23 09:21 CT liver wo/w con Routine Hospital Course (1) Acute pancreatitis: 23-year-old male with PMH of ADHD, marijuana use presented with complaint of 3- day history of achy upper abdominal pain associated with nausea and bilious emesis, worsened with food intake, denied fever or chills or chest pain or shortness of breath or unusual weight loss. He was managed for the following: Acute pancreatitis: Amylase and lipase elevated at presentation Likely from cannabis use; AST/ALT/ALP WNL, bilirubin minimally elevated. USG gallbladder with normal GB and CBD. Patient tolerated advancement of diet, no use of pain medication while in hospital, DC IV fluid, patient to maintain low-fat/soft diet upon discharge for next few days. Patient to avoid marijuana and alcohol upon discharge, patient has been counseled. Lesions in left lower liver: 2.7 cm indeterminate echogenic lesion noted in the left lower liver in US gallbladder. CT liver reviewed-no enhancing hepatic lesion seen. Vitamin D deficiency: Vitamin D level at 28.3, supplementation started. Repeat level in 3 months. Patient has been made aware. Hypercalcemia: Secondary to clinical dehydration secondary to GI illness, improved. ADHD, stable off maintenance medications DVT prophylaxis. Lovenox subcu Full code Patient mother Ms. Radha Caballero, contact #[phone]. Patient is being discharged home with following instruction at the point of discharge: Follow-up with your primary care physician within a week time and likely you will need labs CBC/CMP/magnesium/phosphorus. Avoid marijuana and alcohol as they are related with pancreatitis. Because of vitamin D deficiency noted here, you are started on vitamin D supplement. Repeat vitamin D level in 3 months time. Coordinate with your PCP office to set up the test. Your blood pressure was high while in hospital, likely due to acute stress from pancreatitis. Measure your blood pressure twice a day to maintain a log to take to your primary care physician for long-term monitoring/management of your blood pressure. Take your medications as prescribed. Please make sure that you are able to get your medications today by calling your pharmacy before you leave the hospital so that your treatment continuity is not broken. Text document was generated using [employer] voice recognition software. It may contain grammatical or spelling errors. Kindly contact undersigned for clarification of any documentation item in question. Community Health Attestation I certify that this patient is under my care and that I, or a physicians spa assistant manager working with me, had a face to-face encounter that meets the [id number] encounter requirements with this patient. The encounter with the patient was in whole, or in part, for the following medical condition, which is the primary reason for home health care (list medical condition): I certify that, based on my findings, the following services are medically necessary home health services: My clinical findings support the need for the above services because: Further, I certify that my clinical findings support that this patient is homebound (i.e. absences from home require considerable and taxing effort and are for medical reasons or sabianist services or infrequently or of short duration when for other reasons) because: Certification for Home Health Services: Based on the above findings, I certify that this patient is confined to the home and needs intermittent fdc care, physical therapy and/or speech therapy or continues to need occupational therapy. The patient is under my care, and I have initiated the establishment of the plan of care. This patient will be followed by a physician who will periodically review the plan of care. Total Time Total Time Spent Total Time Spent (In Minutes): 45 Discharge Plan Discharge Items Patient Disposition: Home - Self-Care Reason For Visit: PANCREATITIS Discharge Diagnosis: Acute pancreatitis Activity: Resume your previous activity Non-emergency contact: Primary Care Provider Call non-emergency contact if: you have any medication questions and your symptoms worsen Follow-up/Referrals: PCP,NO [Primary Care Provider] - Diet: Low Fat Diet Comment: Soft diet Addtl Attending Provider Instructions: Follow-up with your primary care physician within a week time and likely you will need labs CBC/CMP/magnesium/phosphorus. Avoid marijuana and alcohol as they are related with pancreatitis. Because of vitamin D deficiency noted here, you are started on vitamin D supplement. Repeat vitamin D level in 3 months time. Coordinate with your PCP office to set up the test. Your blood pressure was high while in hospital, likely due to acute stress from pancreatitis. Measure your blood pressure twice a day to maintain a log to take to your primary care physician for long-term monitoring/management of your blood pressure. Take your medications as prescribed. Please make sure that you are able to get your medications today by calling your pharmacy before you leave the hospital so that your treatment continuity is not broken. Pending Studies at Discharge: No Stand-Alone Forms: My Rent Here, Smoking Cessation Medications and DC Order Prescriptions: New cholecalciferol (vitamin D3) 125 mcg (5,000 unit) Tablet 125 mcg PO QAM Qty: 30 0RF ondansetron 4 mg tablet,disintegrating 4 mg PO BID PRN (Reason: nausea and vomiting) Qty: 20 0RF Discharge Orders: Discharge Order (Routine); Ordered 08/23/23 Ordered By: Kayla Pérez Admission Data Admit Date/Time: 08/22/23 00:36 Attending Provider: Kayla Pérez Admit Provider: Crispin Flores Primary Care Provider: PCP,NO Other Providers: Crispin Flores; Dedrick Davidson; Dakota Muñiz; Leigha Schumacher; Khalida Pham; Reena Chiu; Mckenzie Tate; Jacqueline Gomez; Terry Day; Alejandro Lyon; Ciaran Glover; Joao Sheets; Meghann Soto S; Dixie Reynolds; Kaye Vazquez; Yessy Meyer; Eleanor Hurtado; Kiah Lopez; Aly Bell; Chapo Koo; Briana Mijares; Pamela Baptiste Jr
[2023-08-24 07:32] LABS: Marijuana Quant, GCMS Urine 3107 ng/mL (<5)
== END 2023-08-23 17:28 | disposition home or self-care (01) ==
LOC: ED 18:01 → INTOOBSV 08-22 00:36 → 3E 08-22 00:36